=== PATIENT | male | born 1980 | race Caucasian/White ===

== ENCOUNTER 2019-01-03 10:57 | Emergency (ER) | payer OTHER ==
[~2019-01-03] VITALS: Ht 185.4 cm; Wt 172.4 kg
[~2019-01-03 10:57] MED LIST: CARISOPRODOL 3350 MG PO; ERYTHROMYCIN E3.5 G1 OP; NORCO 5-325 TA1 EACH PO
[2019-01-03 12:14] LABS: ABSOLUTE MONOCYTES 0.7 thou/uL (0.0-1.2); ABSOLUTE NEUTROPHILS 7.4 thou/uL (1.6-8.1); BASOPHILS 0.3 %; HEMATOCRIT 43.2 % (42.0-52.0); HEMOGLOBIN 14.9 gm/dL (14.0-18.0); LYMPHOCYTES 10.8 %; MCH 28.3 pg (26.0-34.0); MCHC 34.5 g/dL (28.0-37.0); MCV 82.2 fL (80.0-100.0); MONOCYTES 7.5 %; MPV 7.8 fl. (7.2-11.1); NUCLEATED RBCS 0 /100WBC; PLATELET COUNT* 217 thou/uL (150-400); POLYS 81.4 %; RBC 5.26 mil/uL (4.50-6.00)
[2019-01-03 12:28] LABS: ALBUMIN 3.5 g/dL (3.4-5.0); CALCIUM 8.9 mg/dL (8.5-10.1); POTASSIUM 4.2 mmol/L (3.5-5.1); TOTAL BILIRUBIN 0.6 mg/dL (<0.1-1.0); TOTAL PROTEIN 8.3 g/dL (6.4-8.2)
[2019-01-03] MEDS ORDERED: PREDNISONE 20 M20 M1 PO (12:59)
[2019-01-03] MEDS ORDERED: PROAIR HFA8.5 GM INH (12:59)
[2019-01-03 13:07] VITALS: BP 128/61
== END 2019-01-03 13:08 | disposition home or self-care (01) ==
LOC: M.ERS 10:57
PROVIDERS: Nurse Practitioner Family
DX: J10.1 Influenza due to other identified influenza virus with other respiratory manifestations (principal); J20.9 Acute bronchitis, unspecified; R11.2 Nausea with vomiting, unspecified; R19.7 Diarrhea, unspecified